=== PATIENT | female | born 1975 | race Caucasian/White ===

== ENCOUNTER → 2016-09-25 | Outpatient (CLI) | payer BC ==
--- NOTE | 2016-09-26 07:59 | MAMMOGRAPHY REPORT ---
BILATERAL DIGITAL SCREENING MAMMOGRAM TOMOSYNTHESIS WITH CAD: 09/25/2016 CLINICAL HISTORY: Baseline examination. Routine screening. Patient has no complaints. TECHNIQUE: Breast tomosynthesis in addition to standard 2D mammography was performed. Current study was also evaluated with a Computer Aided Detection (CAD) system. COMPARISON: No prior exams were available for comparison. BREAST COMPOSITION: The tissue of both breasts is heterogeneously dense, which may obscure small mas ses. FINDINGS: No suspicious masses, calcifications, or areas of architectural distortion are noted in ei ther breast. IMPRESSION: ACR BI-RADS CATEGORY 1: NEGATIVE There is no mammographic evidence of malignancy. A 1 year screening mammogram is recommended. The pa tient will receive written notification of the results. Approximately 10% of breast cancers are not detected with mammography. A negative mammographic report should not delay biopsy if a clinically suggestive mass is present. Lucie Rahman M.D. /:09/25/2016 14:50:46 Boat Crew Deck Hand: Aurelia BRARR, M, [facility] letter sent: Normal 1/2 BI-RADS Code: ACR BI-RADS Category 1: Negative
== END | disposition home or self-care (01) ==
LOC: C.MAMM 12:32
PROVIDERS: ATTEND Family Medicine
DX: Z12.31 Encounter for screening mammogram for malignant neoplasm of breast (principal)

== ENCOUNTER 2020-01-11 05:02 | Observation (INO) ==
--- NOTE | 2019-12-13 13:19 | Anesthesiology Consultation ---
Date of Service December 13, 2019 Assessment & Plan (1) Encounter for pre-operative examination: Per assessment on 12/12: Travel screen negative. No known COVID-19 positive contac ts or current COVID-19 related symptoms. Surgeon arranging preop COVID testing. Awaiting results. Chart Review Chart Review: Acceptable Risk for Surgery (pending surgeon-ordered PCP clearance (Dr. Valera)) and Patient seen in Pre Admission Testing Teaching & Discussion Pre-Anesthesia Teaching/Discussion Notes: Instructed NPO after midnight before surgery,except medications with 15 cc of water. Medication instructions provided according to the PAT guidelines. History Surgery Operation Date: 01/11/20 10:05 Proposed Procedures p Right Total Knee Arthroplasty - Rakan Barraza DO Height/Weight Height: 5 ft Weight: 98.7 kg Allergies Allergy/AdvReac Type Severity Reaction Status Date / Time No Known Allergies Allergy Verified 12/09/19 09:46 Medications Home Medications Medication Instructions Recorded Confirmed Last Taken No Known Home Medications 12/09/19 12/09/19 Unknown Past Medical History Medical History Morbid obesity Osteoarthritis Exercise / Class Metabolic Activity II 4-5 Yardwork/Stairs/Walk up hill Past Surgical History Surgical History History of carpal tunnel surgery of right wrist Hx of arthroscopy of knee R/L Hx of section Hx of hysterectomy Past Anesthesia History No Hx of Anesthesia Complications and No Family Hx of Anesthesia Complications History of PONV No Hx of PONV and Hx of Motion Sickness (rare) Social History Smoking Status: Never smoker Do You Dip or Chew Tobacco: No Hx Alcohol Use: No Hx Substance Use: No substance use type: does not use Review of Systems Patient denies chest pain, shortness of breath, dyspnea on exertion, fever, chills, cough, wheezing, palpitations. Physical Exam Vital Signs VITALS BP 119/78 P 77 TEMP 98.8 SP02 94%RA RESP 18 PHYSICAL Full neck and c-spine range of motion. Full TMJ range of motion. TMD 3 finger breaths Mallampati Score 1 Dentition: intact Lungs: clear throughout to auscultation Cardiac: regular rate and rhythm, no murmurs noted Spine: normal Extremities: no edema Testing Laboratory Results 12/13/19 13:46 12/13/19 13:46 PT 10.4 Seconds (9.0-12.0) 12/13/19 13:46 INR 1.0 (0.9-1.1) 12/13/19 13:46 APTT 28.8 Seconds (21.0-31.0) 12/13/19 13:46 Urine Color Yellow 12/13/19 13:46 Urine Appearance Clear (Clear) 12/13/19 13:46 Urine pH 5.0 (4.5-7.5) 12/13/19 13:46 Ur Specific [place] 1.022 (1.000-1.030) 12/13/19 13:46 Urine Protein Negative (Negative) 12/13/19 13:46 Urine Glucose (UA) Negative (Negative) 12/13/19 13:46 Urine Ketones Negative (Negative) 12/13/19 13:46 Urine Nitrite Negative (Negative) 12/13/19 13:46 Ur Leukocyte Esterase Trace (Negative) H 12/13/19 13:46 Urine WBC (Auto) 5-10 /hpf (0-5) H 12/13/19 13:46 Urine RBC (Auto) 5-10 /hpf (0-4) H 12/13/19 13:46 U Hyaline Cast (Auto) 0 /lpf (0-5) 12/13/19 13:46 U Epithel Cells (Auto) >30 /lpf (0-5) H 12/13/19 13:46 Urine Bacteria (Auto) 1+ (Negative) H 12/13/19 13:46 Blood Type A Positive 12/13/19 13:46 Antibody Screen NEGATIVE 12/13/19 13:46 Surgeon's office made aware of elevated WBC/abnormal UA.* Electrocardiogram Date: 12/13/19 NSR at 67bpm. unconfirmed report* Chest X-Ray Date: 12/13/19 FINDINGS: S-shaped scoliosis of the thoracolumbar spine. The lungs are clear. The heart is normal in size. No pleural effusions. No pneumothorax. IMPRESSION: No acute process.
--- NOTE | 2019-12-13 14:27 | XRay Report ---
XR chest Pre-admission PA/Lat HISTORY: Preop. COMPARISON: None. FINDINGS: S-shaped scoliosis of the thoracolumbar spine. The lungs are clear. The heart is normal in size. No pleural effusions. No pneumothorax. IMPRESSION: No acute process. ACT 112: Negative or not required by law. Electronically signed by: Jose Simmons M.D. 12/13/2019 2:26 PM
[2019-12-13 14:54] LABS: Basophils # (auto) 0.03 K/uL (0-0.2); Basophils % (auto) 0.3 %; Eosinophils # (auto) 0.29 K/uL (0-0.5); Eosinophils % (auto) 2.6 %; Hematocrit (blood only) 40.5 % (37-47); Hemoglobin 13.5 g/dL (12.0-16.0); Immature Granulocytes # (auto) 0.05 K/uL (0.00-0.02); Immature Granulocytes % (auto) 0.4 %; Lymphocytes # (auto) 3.83 K/uL (1.2-3.4); Lymphocytes % (auto) 33.7 %; Mean Corpuscular Hgb Conc 33.3 g/dL (32-36); Mean Corpuscular Volume 86.9 fL (80-100); Mean Platelet Volume 11.6 fL (7.4-10.4); Monocytes # (auto) 0.96 K/uL (0.11-0.59); Monocytes % (auto) 8.4 %; Neutrophils # (auto) 6.21 K/uL (1.4-6.5); Neutrophils % (auto) 54.6 %; Platelet Count 260 K/uL (130-400); RDW Coefficient of Variation 15.5 % (11.5-14.5); RDW Standard Deviation 49.3 fL (36.4-46.3); Red Blood Count 4.66 M/uL (4.2-5.4); White Blood Count 11.37 K/uL (4.8-10.8)
[2019-12-13 14:55] LABS: Appearance Urine Clear (Clear); Bacteria Urine Automated 1+ (Negative); Bilirubin Urine Negative (Negative); Blood Urine Negative (Negative); Cast Urine Automated 0 /lpf (0-5); Color Urine Yellow; Epithelial Cell Urine Auto >30 /lpf (0-5); Glucose Urine UA Negative (Negative); Ketones Urine Negative (Negative); Leukocyte Esterase Urine Trace (Negative); Nitrite Urine Negative (Negative); Protein Urine Negative (Negative); Specific Gravity Urine 1.022 (1.000-1.030); Urobilinogen Urine Negative (Negative)
[2019-12-13 15:03] LABS: Albumin Level 3.5 gm/dl (3.4-5.0); BUN Creatinine Ratio 11.3 (10-20); Calcium 8.5 mg/dl (8.5-10.1); Creatinine Clr Calc Pharmacy 110.1 ml/min; Est GFR (African American) 122.4; Est GFR (Non-African American) 105.6; Potassium 3.9 mmol/L (3.5-5.1)
[2019-12-13 15:08] LABS: Partial Thromboplastin Time 28.8 Seconds (21.0-31.0); Prothrombin Time 10.4 Seconds (9.0-12.0)
--- NOTE | 2019-12-13 18:20 | Electrocardiogram Report ---
Test Reason : Blood Pressure : / mmHG Vent. Rate : 067 BPM Atrial Rate : 067 BPM P-R Int : 168 ms QRS Dur : 086 ms QT Int : 402 ms P-R-T Axes : 061 073 038 degrees QTc Int : 424 ms Normal sinus rhythm Normal ECG No previous ECGs available Confirmed by Matt Ford ([id number]) on 12/13/2019 6:20:21 PM Referred By: Rakan Barraza Confirmed By:Nigel Ford
[2019-12-14 05:35] LABS: Estimated Average Glucose 108 mg/dl; Hemoglobin A1C 5.4 % (4.5-5.6)
--- NOTE | 2019-12-16 08:37 | History & Physical Report ---
Date of Service December 16, 2019 date of surgery: 01/11/20 procedure: Right Total Knee Arthroplasty Assessment & Plan (1) Arthritis of right knee: Further care discussed with patient and at this point in time has failed conservative measures including visco and previous knee arthroscopy as well as PO NSAIDs, and she would like to proceed with a Right total knee replacement. Plan on discharge will be home with home health physical therapy. DVT prophalaxis with TEDs, SCDs and will also place on aspirin 81 mg p.o. b.i.d. for a month postop. Patient will have follow up appointment in our office two weeks post op for staple/suture removal and re-evaluation. Patient otherwise has no o ther questions or concerns. History of Present Illness Chief Complaint: Right knee pain Primary Care Provider: Ian Hoffmann is a 44 year old female who complains of Right knee pain, presents for pre-op evaluation prior to a Right total knee replacement by dr Barraza at [facility]. She complains of pain, decreased range of motion, instability and stiffness in her right knee. she states that the symptoms have been chronic and are rated as moderate-severe. The pain is described as aching, sharp and throbbing. The symptoms are aggravated by ascending stairs, daily activities, first steps while awake walking. Prior NSAIDs include IBU and Aleve. She has been treated with previous visco injections in the past, most recently Durolane a few months ago without much relief. She previously had right knee scope on 04/18/[address] Barraza, he performed right knee arthroscopy w/ PMM and chondroplasty of the trochlea. Allergies Allergy/AdvReac Type Severity Reaction Status Date / Time No Known Allergies Allergy Verified 12/09/19 09:46 Home Medications Home Medications Medication Instructions Recorded Confirmed Type No Known Home Medications 12/09/19 12/09/19 History Past Med/Surg History Medical History Morbid obesity Osteoarthritis Surgical History History of carpal tunnel surgery of right wrist Hx of arthroscopy of knee R/L Hx of section Hx of hysterectomy Social History Smoking Status: Never smoker Second Hand Exposure: No; Do You Dip or Chew Tobacco: No; Tobacco Cessation Education Requested by Patient: No Hx Alcohol Use: No Hx Substance Use: No Preferred Language: French Communication Ability: Effective Drywall Application Supervisor Required: No Beliefs That Will Affect Care: None Current Living Situation: Family Other Information That Helps Us Care for You: No Feels Safe at Home: Yes Safety Concerns: Feels Safe At This Time Review of Systems Review of Systems: All systems reviewed & are unremarkable except as noted in HPI & below Constitutional: no fever, no chills and no sweats Respiratory: no cough and no dyspnea Cardiovascular: no chest pain, no dyspnea and no orthopnea Gastrointestinal: no abdominal pain, no nausea and no vomiting Musculoskeletal: as per Subjective / HPI Physical Exam Physical Exam: HT: 5ft Wt: 98.7kg BP: 112/78 Constitutional: WD/WN, vitals as above no acute distress Respiratory: normal respiratory effort, lungs clear to auscultation no respiratory distress, no labored breathing and does not use accessory muscles Cardiovascular: RRR, no murmur, no edema Gastrointestinal (Abdomen): normal bowel sounds, soft, nontender, no hepatosplenomegaly Musculoskeletal: Knee: + knee abnormal to inspection (right knee- ), + effusion (+1 effusion), + surgical incision (well healed portals), + limited ROM of knee (ROM 0/3/115), + knee ROM with crepitation, + joint line tenderness (medial joint line) and + Shanel's sign positive; no deformity, no skin erythema, no ecchymosis, no valgus laxity, no varus laxity, anterior drawer test negative, Brian's sign negative and pivot shift test negative Results & Data Results & Data ([facility]) Laboratory Results Laboratory Results WBC 11.37 K/uL (4.8-10.8) H 12/13/19 13:46 RBC 4.66 M/uL (4.2-5.4) 12/13/19 13:46 Hgb 13.5 g/dL (12.0-16.0) 12/13/19 13:46 Hct 40.5 % (37-47) 12/13/19 13:46 MCV 86.9 fL (80-100) 12/13/19 13:46 MCH 29.0 pg (25-34) 12/13/19 13:46 MCHC 33.3 g/dL (32-36) 12/13/19 13:46 RDW Std Deviation 49.3 fL (36.4-46.3) H 12/13/19 13:46 RDW Coeff of Roxann 15.5 % (11.5-14.5) H 12/13/19 13:46 Plt Count 260 K/uL (130-400) 12/13/19 13:46 MPV 11.6 fL (7.4-10.4) H 12/13/19 13:46 Immature Gran % (Auto) 0.4 % 12/13/19 13:46 Neut % (Auto) 54.6 % 12/13/19 13:46 Lymph % (Auto) 33.7 % 12/13/19 13:46 [place] % (Auto) 8.4 % 12/13/19 13:46 Eos % (Auto) 2.6 % 12/13/19 13:46 Baso % (Auto) 0.3 % 12/13/19 13:46 Neut # (Auto) 6.21 K/uL (1.4-6.5) 12/13/19 13:46 Lymph # (Auto) 3.83 K/uL (1.2-3.4) H 12/13/19 13:46 [place] # (Auto) 0.96 K/uL (0.11-0.59) H 12/13/19 13:46 Eos # (Auto) 0.29 K/uL (0-0.5) 12/13/19 13:46 Baso # (Auto) 0.03 K/uL (0-0.2) 12/13/19 13:46 Immature Gran # (Auto) 0.05 K/uL (0.00-0.02) H 12/13/19 13:46 PT 10.4 Seconds (9.0-12.0) 12/13/19 13:46 INR 1.0 (0.9-1.1) 12/13/19 13:46 APTT 28.8 Seconds (21.0-31.0) 12/13/19 13:46 PTT Ratio 1.0 12/13/19 13:46 Sodium 139 mmol/L (136-145) 12/13/19 13:46 Potassium 3.9 mmol/L (3.5-5.1) 12/13/19 13:46 Chloride 107 mmol/L (98-107) 12/13/19 13:46 Carbon Dioxide 23 mmol/L (21-32) 12/13/19 13:46 Anion Gap 9.0 (3-11) 12/13/19 13:46 BUN 8 mg/dl (7-18) 12/13/19 13:46 Creatinine 0.68 mg/dl (0.6-1.2) 12/13/19 13:46 Est Cr Clr Drug Dosing 110.1 ml/min 12/13/19 13:46 Est GFR ( Amer) 122.4 12/13/19 13:46 Est GFR (Non-Af Amer) 105.6 12/13/19 13:46 BUN/Creatinine Ratio 11.3 (10-20) 12/13/19 13:46 Glucose 81 mg/dl (70-99) 12/13/19 13:46 Estimat Average Glucose 108 mg/dl 12/13/19 13:46 Hemoglobin A1c 5.4 % (4.5-5.6) 12/13/19 13:46 Calcium 8.5 mg/dl (8.5-10.1) 12/13/19 13:46 Albumin 3.5 gm/dl (3.4-5.0) 12/13/19 13:46 Urine Color Yellow 12/13/19 13:46 Urine Appearance Clear (Clear) 12/13/19 13:46 Urine pH 5.0 (4.5-7.5) 12/13/19 13:46 Ur Specific [place] 1.022 (1.000-1.030) 12/13/19 13:46 Urine Protein Negative (Negative) 12/13/19 13:46 Urine Glucose (UA) Negative (Negative) 12/13/19 13:46 Urine Ketones Negative (Negative) 12/13/19 13:46 Urine Blood Negative (Negative) 12/13/19 13:46 Urine Nitrite Negative (Negative) 12/13/19 13:46 Urine Bilirubin Negative (Negative) 12/13/19 13:46 Urine Urobilinogen Negative (Negative) 12/13/19 13:46 Ur Leukocyte Esterase Trace (Negative) H 12/13/19 13:46 Urine WBC (Auto) 5-10 /hpf (0-5) H 12/13/19 13:46 Urine RBC (Auto) 5-10 /hpf (0-4) H 12/13/19 13:46 U Hyaline Cast (Auto) 0 /lpf (0-5) 12/13/19 13:46 U Epithel Cells (Auto) >30 /lpf (0-5) H 12/13/19 13:46 Urine Bacteria (Auto) 1+ (Negative) H 12/13/19 13:46 Blood Type A Positive 12/13/19 13:46 Antibody Screen NEGATIVE 12/13/19 13:46 Diagnostic Findings right knee 4 view series showing narrowing of joint space medial compartment with overall varus alignment, there is also narrowing of the lateral compartment and patellofemoral joint. there is osteophyte formation, subchondral sclerosis noted, no loose bodies, no acute bony pathology. overall impression tricompartmental degenerative changes to the right knee.
--- OUTSIDE RECORDS SUMMARY | 2020-01-11 05:05 | External Medical Summary | Continuity of Care Document ---
:1975 Author Name Inez Frazier, Provider Address Unavailable Unavailable , Care Team Providers Name Role Phone Jaylen NEGRON M.D., E. PLele Unavailable [email or web address], [email or web address] Unavailable Unavailable Assessments Assessed Problems:Limb pain Problems Limb pain (319.5) (M41.609) Allergies and Adverse Reactions Allergy history not documented Medications Medications not documented Procedures Procedures not documented Immunizations Immunizations not documented Plan of Treatment Planned Observations Planned Goals not documented Results No Known Results Results not documented Encounters Appointment; Jones York III, M.D. 23-Feb-2014 15:30 Encounter Diagnosis: Problem not documented
[2020-01-11] MEDS ORDERED: ACETAMINOPHEN 500 MG TAB PO SCH (06:00)
[2020-01-11] MEDS ORDERED: LR 500ML BOLUS, THEN 15ML/HR IV SCH (06:00)
[2020-01-11] MEDS ORDERED: GABAPENTIN 900 MG DOSE PO SCH (06:00)
[2020-01-11] MEDS ORDERED: dexAMETHasone 4 MG TAB PO SCH (06:00)
[2020-01-11] MEDS ORDERED: GABAPENTIN 600 MG DOSE PO SCH (06:00)
[2020-01-11] MEDS ORDERED: CeleBREX 200 MG CAP PO SCH (06:00)
[2020-01-11] MEDS ORDERED: METOCLOPRAMIDE HCL 10 MG TABLET PO SCH (06:00)
[2020-01-11] MEDS ORDERED: CEFAZOLIN 2000MG 2,000 MG/15 ML SYR IV SCH (06:00)
[2020-01-11] MEDS ORDERED: FAMOTIDINE 20 MG TAB PO SCH (06:00)
[2020-01-11] MEDS ORDERED: BUPIVACAINE 0.5 % 5 MG/1 ML PF 10ML VIAL ONE (06:15)
[2020-01-11] MEDS ORDERED: BUPIVACAINE 0.25% 30 ML VIAL ONE (06:15)
[2020-01-11] MEDS ORDERED: fentaNYL citrate 100 MCG/2 ML VIAL ONE (06:26)
[2020-01-11] MEDS ORDERED: MIDAZOLAM HCL 1 MG/ML 2ML VIAL ONE ×2 (06:26)
[2020-01-11] MEDS ORDERED: TRANEXAMIC ACID / 0.7% NACL 1000MG/100ML BAG IV ONE (06:39)
[2020-01-11] MEDS ORDERED: TRANEXAMIC ACID / 0.7% NACL 1,000 MG/100 ML BAG IV STA ×2 (06:40→06:41)
[2020-01-11] MEDS ORDERED: BACITRACIN INJ 50,000 UNIT VIAL ONE (06:44)
[2020-01-11] MEDS ORDERED: ORTHO JOINT ANESTHETIC ONE (06:44)
--- NOTE | 2020-01-11 06:57 | History & Physical Bridge Note ---
Date of Service January 11, 2020 History & Physical Bridge Note I have examined the patient, reviewed the History & Physical and in the interval since the performance of the History & Physical I have noted the following changes of clinical significance: no changes noted
[2020-01-11] MEDS ORDERED: ROPIVACAINE 0.5% HCL/PF 150 MG, BUPIVACAINE 0.5% MPF 30 ML, EPINEPHrine 30MG/30ML (OR U... INFIL SCH (07:00)
[2020-01-11] MEDS ORDERED: PROPOFOL IV EMULSION 10 MG/ML 20 ML VIAL IV ONE (07:22)
[2020-01-11] MEDS ORDERED: ATROPINE SULFATE 0.1 MG/ML 10ML SYR IV PRN (07:39)
[2020-01-11] MEDS ORDERED: ePHEDrine sulfate 50 MG/ML AMP IV PRN (07:39)
[2020-01-11] MEDS ORDERED: fentaNYL citrate 100 MCG/2 ML VIAL IV PRN (07:39)
[2020-01-11] MEDS ORDERED: ONDANSETRON INJ 2 MG/ML 2 ML VIAL IV PRN ×2 (07:39→09:45)
--- NOTE | 2020-01-11 08:19 | Operative Report ---
Post Operative Report Pre & Post Diagnosis Operation Date: 01/11/20 07:00 Pre-Op Diagnosis: Osteoarthritis, Right Knee Post-Op Diagnosis: Osteoarthritis, Right Knee I identified the patient and participated in the time-out.: Yes Procedure Operation Date: 01/11/20 07:00 Actual Procedures p Right Total Knee Arthroplasty(Right) utilizing [email or web address] journey 2 patient matched total knee arthroplasty size 4 femur to tibia 13 polyethylene 29 oval patella- Rakan Barraza DO Surgeon Rakan Barraza DO Freight Team Associate RICHY Caraballo Estimated Blood Loss 5 Findings Consistent with Post-Op Diagnosis Patient presents with severe end-stage tricompartmental degenerative joint disease varus alignment subchondral cystic changes marginal osteophytes moderate to large effusion no response to conservative management the above intraoperative findings were noted Specimens Bone and cartilage Drains Medium bore Hemovac Anesthesia Type MAC Spinal Regional Complications none Disposition Accompanied Patient To Recovery: No Disposition: Recovery Room Indications Patient presents with severe end-stage tricompartmental degenerative joint disease right knee no response to conservative management above intraoperative findings were noted. Patient failed attempted corticosteroid injection Visco supplementation relative rest activity modification bracing physical therapy weight loss the above intraoperative findings were noted Description of Procedure After proper prepping and draping of the Right lower extremity anterior midline incision was made over the region of the extensor extensor mechanism after meticulous hemostasis was obtained and maintained in subcutaneous tissues a medial parapatellar incision was made The patella was subluxed lateralward the medial lateral gutter were cleaned from any hypertrophic synovitis and scar tissue of the distal femoral block was placed and the distal femoral osteotomy cut was made subsequently the chamfers anterior and posterior osteotomy cuts were made utilizing the 4-in-1 block the tibia was subsequently subluxed anteriorward medial and ateral meniscal remnants were excised in their entirety remnants of the anterior and posterior cruciate ligaments were excised in their entirety excellent exposure of the proximal tibia was obtained the tibial osteotomy guide was placed on the proximal tibial osteotomy cut was made once again the knee was irrigated with copious amounts of sterile saline solution the patella was subsequently everted lateralward thickened scar tissue around the patella was removed the patella was subsequently cut utilizing a freehand technique and was drilled prepared for final preparation and placement of patella socially flexion-extension gaps were checked and the equal and symmetric trials were placed to the appropriate femoral and tibial trials with poly-spacer being placed for equal flexion and extension gaps and full range of motion including extension to 0 and flexion to 140 the trial components after having been taken to recovery range of motion was subsequently removed meticulous hemostasis was obtained and maintained subsequently a knee block injection of joint cocktail including ropivacaine 0.5% 150 mg. Bupivacaine 0.5% epinephrine 1-200,030 mL's toradol 30 mg dexamethasone 4 mg ketamine 10 mg clonidine 100 micrograms normal saline solution 30 mg was infiltrated into the soft tissues of the posterior knee medial lateral gutters and periosteal synovium special attention was paid to protect neurovascular structures at all times subsequently trial components having been removed the knee was irrigated with sterile saline solution. debris was removed the proximal tibia was subsequently prepared and was made ready for the placement of the tibial component tibial component was also cemented and tamped into position the femoral component was subsequently placed and cemented in the position the patellar component was subsequently cemented in position because hemostasis once again obtained and maintained wound having been thoroughly irrigated with debridement and debridement lavage was performed as well as a medial parapatellar incision closed with #1 Vicryl in interrupted fashion subcutaneous was closed with #2 Vicryl skin was closed with skin clips. PA-C was necessary for prepping and drapping as well as wound closure of deep fascia Sub cutaneous tissue and skin and was necessary for the case. A sterile compressive dressing was placed patient was taken to recovery in stable condition of report dictated by Madi I attest to the content of the Intraoperative Record and any orders documented therein. Any exceptions are noted below. I attest to the content of the Intraoperative Record and any orders documented therein. Any exceptions are noted below.
--- NOTE | 2020-01-11 09:17 | Anesthesiology Progress Note ---
Date of Service January 11, 2020 Anesthesia Post Procedure Vital Signs Vital Signs: Temp Pulse Pulse Resp BP Pulse Ox 01/11/20 09:00 80 15 106/61 98 01/11/20 08:54 36.6 C 87 12 109/56 L 99 01/11/20 06:05 36.7 C 85 20 126/77 100 01/11/20 05:47 36.8 C 82 20 115/68 98 Transfer of Care Handoff Completed per policy Notes Mental Status: alert / awake / arousable and participated in evaluation Nausea / Vomiting: adequately controlled Pain: adequately controlled Airway Patency, RR, SpO2: stable & adequate BP & HR: stable & adequate Hydration State: stable & adequate Neuraxial Anesthesia: was administered and sensory block is resolving Anesthetic Complications: no major complications apparent and Pt Satisfied with anesthetic care
--- NOTE | 2020-01-11 09:35 | XRay Report ---
XR knee RT 1 or 2V routine CLINICAL HISTORY: Surgical Post Op COMPARISON: None FINDINGS: Alignment of the total right knee arthroplasty is anatomic. There is no periprosthetic fra cture or unexpected radiopaque foreign body. There are skin guillermo. IMPRESSION: Expected findings following total right knee arthroplasty. ACT 112: Negative or not required by law. Electronically signed by: Jose Stanley M.D. 01/11/2020 9:33 AM
[2020-01-11] MEDS ORDERED: HYDROmorphone INJ 1 MG/ML SYRINGE IV PRN (09:45)
[2020-01-11] MEDS ORDERED: METOCLOPRAMIDE HCL INJ 5 MG/ML 2 ML VIAL IV PRN (09:45)
[2020-01-11] MEDS ORDERED: bisacodyL 10 MG SUPP PR PRN (09:45)
[2020-01-11] MEDS ORDERED: MAGNESIUM HYDROXIDE SUSP 30 ML UDC PO PRN (09:45)
[2020-01-11] MEDS ORDERED: NALOXONE HCL 0.4 MG/1 ML VIAL/CARP IV PRN (09:45)
[2020-01-11] MEDS ORDERED: OXYCODONE HCL IR 5 MG TAB (IMMEDIATE RELEASE) PO PRN (09:45)
[2020-01-11] MEDS: SODIUM CHLORIDE 0.9% 1000ML 1,000 ML IV SCH ×2 (10:41→21:10)
[2020-01-11] MEDS: KETOROLAC 30 MG/ML VIAL IV SCH ×3 (10:43→22:04)
[2020-01-11] MEDS: DOCUSATE SODIUM 100 MG CAP PO SCH ×2 (10:43→21:00)
[2020-01-11] MEDS: MULTIVITAMIN TAB PO SCH (10:43)
[2020-01-11] MEDS: ASPIRIN 81 MG ECTAB PO SCH ×2 (10:43→20:59)
[2020-01-11] MEDS: ACETAMINOPHEN 500 MG TAB PO SCH ×2 (14:39→20:59)
[2020-01-11] MEDS: CEFAZOLIN 2000MG 2,000 MG/15 ML SYR IV SCH ×2 (15:00→22:03)
[2020-01-11] MEDS ORDERED: SENNA 8.6 MG TAB PO SCH (21:00)
[2020-01-12] MEDS: KETOROLAC 30 MG/ML VIAL IV SCH (05:36)
[2020-01-12] MEDS: ACETAMINOPHEN 500 MG TAB PO SCH ×2 (05:36→12:58)
[2020-01-12 06:37] LABS: Hematocrit (blood only) 34.1 % (37-47); Hemoglobin 11.4 g/dL (12.0-16.0); Mean Corpuscular Hemoglobin 29.2 pg (25-34); Mean Corpuscular Hgb Conc 33.4 g/dL (32-36); Mean Corpuscular Volume 87.4 fL (80-100); Mean Platelet Volume 11.8 fL (7.4-10.4); Platelet Count 236 K/uL (130-400); RDW Coefficient of Variation 15.2 % (11.5-14.5); RDW Standard Deviation 48.8 fL (36.4-46.3)
--- NOTE | 2020-01-12 06:55 | Orthopedic Progress Note ---
Date of Service January 12, 2020 Assessment & Plan (1) History of total right knee replacement: POD #1 s/p Right TKA pt/ot dvt proph with ELHAM/SCD/ASA plan for d/c home with HHPT when stable, will recheck after PT today for poss d/c Admission and Anticipated Discharge Date Admission Date: January 11, 2020 Subjective POD #1 s/p Right TKA Review of Systems Constitutional: no fever, no chills and no sweats Respiratory: no cough and no dyspnea Cardiovascular: no chest pain and no dyspnea Gastrointestinal: no abdominal pain, no nausea and no vomiting Physical Exam Physical Exam: Vital Signs Temp 37.0 C 01/12/20 04:03 Pulse 79 01/12/20 04:03 Resp 14 01/12/20 04:03 BP 112/69 01/12/20 04:03 Pulse Ox 97 01/12/20 04:03 Intake & Output 01/11/20 01/11/20 01/12/20 06:59 18:59 06:59 Intake Total 100 / 100 1875 / 3515 1640 / 3515 Output Total 1305 / 1505 200 / 1505 Balance 100 / 100 / 2009 144 / 2009 Weight 98.792 kg Intake: IV 100 / 100 800 / 1800 1000 / 1800 Lr 1,000 ml @ 15 mls/hr IV . 700 / 700 Q24H KODAK Rx#:[id number] Nss 1000ML 1,0 00 ml @ 100 mls/ 1000 / 1000 hr IV .Q10H SC H Rx#:[id number] TRANEXAMIC ACI D / 0.7% NACL 1, 100 / 100 100 / 100 000 mg In 100 ml @ 600 mls/hr IV NOW STA Rx# :[id number] IV Perioperative 400 / 400 Oral 675 / 1315 640 / 1315 Output: Urine 1250 / 1450 200 / 1450 Estimated Blood Loss 5 / 5 Drain Output 50 / 50 Right Knee Hem ovac 50 / 50 Other: # Unmeasured Voi ds 1 Weight Measureme nt Method Standing Scale Constitutional: WD/WN, vitals as above no acute distress Musculoskeletal: Right Leg: NVDI, calf SNT, negative mario sign. DP palpable, able to wiggle toes/ankle movement without difficulty. dressing clean dry and intact. Results & Data ([facility]) Vital Signs (Past 12 Hours) Vital Signs Temp Pulse Resp BP Pulse Ox 01/12/20 04:03 37.0 C 79 14 112/69 97 01/11/20 23:41 37.2 C 74 14 137/81 96 01/11/20 19:15 37.2 C 74 16 111/74 96 Laboratory Results Laboratory Results WBC 21.60 K/uL (4.8-10.8) H 01/12/20 06:05 RBC 3.90 M/uL (4.2-5.4) L 01/12/20 06:05 Hgb 11.4 g/dL (12.0-16.0) L 01/12/20 06:05 Hct 34.1 % (37-47) L 01/12/20 06:05 MCV 87.4 fL (80-100) 01/12/20 06:05 MCH 29.2 pg (25-34) 01/12/20 06:05 MCHC 33.4 g/dL (32-36) 01/12/20 06:05 RDW Std Deviation 48.8 fL (36.4-46.3) H 01/12/20 06:05 RDW Coeff of Roxann 15.2 % (11.5-14.5) H 01/12/20 06:05 Plt Count 236 K/uL (130-400) 01/12/20 06:05 MPV 11.8 fL (7.4-10.4) H 01/12/20 06:05 Immature Gran % (Auto) 0.4 % 12/13/19 13:46 Neut % (Auto) 54.6 % 12/13/19 13:46 Lymph % (Auto) 33.7 % 12/13/19 13:46 Tyrrell % (Auto) 8.4 % 12/13/19 13:46 Eos % (Auto) 2.6 % 12/13/19 13:46 Baso % (Auto) 0.3 % 12/13/19 13:46 Neut # (Auto) 6.21 K/uL (1.4-6.5) 12/13/19 13:46 Lymph # (Auto) 3.83 K/uL (1.2-3.4) H 12/13/19 13:46 Tyrrell # (Auto) 0.96 K/uL (0.11-0.59) H 12/13/19 13:46 Eos # (Auto) 0.29 K/uL (0-0.5) 12/13/19 13:46 Baso # (Auto) 0.03 K/uL (0-0.2) 12/13/19 13:46 Immature Gran # (Auto) 0.05 K/uL (0.00-0.02) H 12/13/19 13:46 PT 10.4 Seconds (9.0-12.0) 12/13/19 13:46 INR 1.0 (0.9-1.1) 12/13/19 13:46 APTT 28.8 Seconds (21.0-31.0) 12/13/19 13:46 PTT Ratio 1.0 12/13/19 13:46 Sodium 139 mmol/L (136-145) 12/13/19 13:46 Potassium 3.9 mmol/L (3.5-5.1) 12/13/19 13:46 Chloride 107 mmol/L (98-107) 12/13/19 13:46 Carbon Dioxide 23 mmol/L (21-32) 12/13/19 13:46 Anion Gap 9.0 (3-11) 12/13/19 13:46 BUN 8 mg/dl (7-18) 12/13/19 13:46 Creatinine 0.68 mg/dl (0.6-1.2) 12/13/19 13:46 Est Cr Clr Drug Dosing 110.1 ml/min 12/13/19 13:46 Est GFR ( Amer) 122.4 12/13/19 13:46 Est GFR (Non-Af Amer) 105.6 12/13/19 13:46 BUN/Creatinine Ratio 11.3 (10-20) 12/13/19 13:46 Glucose 81 mg/dl (70-99) 12/13/19 13:46 Estimat Average Glucose 108 mg/dl 12/13/19 13:46 Hemoglobin A1c 5.4 % (4.5-5.6) 12/13/19 13:46 Calcium 8.5 mg/dl (8.5-10.1) 12/13/19 13:46 Albumin 3.5 gm/dl (3.4-5.0) 12/13/19 13:46 Urine Color Yellow 12/13/19 13:46 Urine Appearance Clear (Clear) 12/13/19 13:46 Urine pH 5.0 (4.5-7.5) 12/13/19 13:46 Ur Specific [place] 1.022 (1.000-1.030) 12/13/19 13:46 Urine Protein Negative (Negative) 12/13/19 13:46 Urine Glucose (UA) Negative (Negative) 12/13/19 13:46 Urine Ketones Negative (Negative) 12/13/19 13:46 Urine Blood Negative (Negative) 12/13/19 13:46 Urine Nitrite Negative (Negative) 12/13/19 13:46 Urine Bilirubin Negative (Negative) 12/13/19 13:46 Urine Urobilinogen Negative (Negative) 12/13/19 13:46 Ur Leukocyte Esterase Trace (Negative) H 12/13/19 13:46 Urine WBC (Auto) 5-10 /hpf (0-5) H 12/13/19 13:46 Urine RBC (Auto) 5-10 /hpf (0-4) H 12/13/19 13:46 U Hyaline Cast (Auto) 0 /lpf (0-5) 12/13/19 13:46 U Epithel Cells (Auto) >30 /lpf (0-5) H 12/13/19 13:46 Urine Bacteria (Auto) 1+ (Negative) H 12/13/19 13:46 Blood Type A Positive 12/13/19 13:46 Antibody Screen NEGATIVE 12/13/19 13:46 Diagnostic Findings XR knee RT 1 or 2V routine CLINICAL HISTORY: Surgical Post Op COMPARISON: None FINDINGS: Alignment of the total right knee arthroplasty is anatomic. There is no periprosthetic fracture or unexpected radiopaque foreign body. There are skin guillermo. IMPRESSION: Expected findings following total right knee arthroplasty.
[2020-01-12 07:09] LABS: BUN Creatinine Ratio 17.1 (10-20); Calcium 8.2 mg/dl (8.5-10.1); Creatinine Clr Calc Pharmacy 99.9 ml/min; Est GFR (African American) 111.6; Est GFR (Non-African American) 96.3; Potassium 3.9 mmol/L (3.5-5.1)
[2020-01-12] MEDS: MULTIVITAMIN TAB PO SCH (08:35)
[2020-01-12] MEDS: DOCUSATE SODIUM 100 MG CAP PO SCH (08:35)
[2020-01-12] MEDS: ASPIRIN 81 MG ECTAB PO SCH (08:36)
[2020-01-12] MEDS ORDERED: CeleBREX 200 MG CAP PO SCH (09:00)
--- NOTE | 2020-01-13 09:14 | Discharge Summary ---
Date of Service date of surgery: January 12, 2020 date of admission: 01-11-20 Admission HPI Per Admitting Provider Tahira is a 44 year old female who complains of Right knee pain, presents for pre-op evaluation prior to a Right total knee replacement by dr Barraza at [facility]. She complains of pain, decreased range of motion, instability and stiffness in her right knee. she states that the symptoms have been chronic and are rated as moderate-severe. The pain is described as aching, sharp and throbbing. The symptoms are aggravated by ascending stairs, daily activities, first steps while awake walking. Prior NSAIDs include IBU and Aleve. She has been treated with previous visco injections in the past, most recently Durolane a few months ago without much relief. She previously had right knee scope on 04/18/[address] Barraza, he performed right knee arthroscopy w/ PMM and chondroplasty of the trochlea. Principal Diagnosis right knee arthritis Discharge Exam Constitutional WD/WN, vitals as above no acute distress Musculoskeletal right knee: NVDI, calf SNT, negative mario sign. DP palpable, able to wiggle toes/ankle movement without difficulty. MENA dressing clean dry and intact. expected post-operative bruising noted. Discharge Data Allergies Allergy/AdvReac Type Severity Reaction Status Date / Time No Known Allergies Allergy Verified 01/11/20 05:32 Consultations 01/11/20 09:45 Consult Case Management - Discharge Planning Routine Procedures Performed Operation Date: 01/11/20 07:00 Actual Procedures p Right Total Knee Arthroplasty(Right) - Rakan Barraza, Ordered Studies 01/11/20 05:00 US - OR guided needle placemen Routine Hospital Course (1) History of total right knee replacement: POD #1 s/p Right TKA pt/ot dvt proph with ELHAM/SCD/ASA plan for d/c home with HHPT Total Time Total Time Spent Total Time Spent (In Minutes): 20 Total Time Includes: Examination of the Patient, Discharge Planning and Medication Reconciliation Discharge Plan Discharge Items Patient Disposition: Home - Home Health Services Reason For Visit: Osteoarthritis, Right Knee Discharge Diagnosis: Right total knee replacement Activity: Per Instructions section Lifting: Wait until after follow-up appointment Exercise/Sports: Wait until after follow-up appointment Weightbearing Comment: WBAT with walker Non-emergency contact: Surgeon Call non-emergency contact if: you have any medication questions, your pain is not controlled, your temperature is above 101, your wound has increased redness, your wound has increased drainage and your wound pain has increased Follow-up/Referrals: Ian Valera [Primary Care Provider] - Diet: Regular Addtl Attending Provider Instructions: ACTIVITY RECOMMENDATIONS: SELF CARE INSTRUCTIONS AFTER TOTAL KNEE REPLACEMENT A. You may need to continue a physical therapy program after discharge from the hospital. There are several options available to you. Your doctor will assist you in selecting the best one for you. 1. An out-patient facility 2 to 3 times a week for therapy or home therapy. 2. Continue working on all exercises taught to you in the hospital. Your goals should be to increase bending of your knee to 90 degrees and beyond and to fully straighten your knee. B. You may progress at your own pace from walking with a walker or crutches to a cane; then to no assistive devices. C. Make walking a part of your daily routine. Be up as much as comfortable with rest periods throughout the day. Rest with leg elevation is very important. Use the ice wrap frequently for the first 3-4 weeks. D. There are no restrictions on activities. You may ride in a car, shop, participate in livestock breeder and all social activities. E. Wear the long elastic stockings (ELHAM hose) 20 hours a day for 2 weeks after surgery. They can be removed several times a day for laundering and for a bath. F. You may shower, no tub baths until cleared by your doctor. SPECIAL CARE INSTRUCTIONS: VERY IMPORTANT TO READ AND REVIEW A. There are a few signs you need to watch for after you are home. Call [facility] if you notice any of the followin. Increased severe knee pain. Some pain is expected especially when you exercise. 2. Increased swelling in your leg or knee; pain or swelling of the calf m uscle in either lower leg. 3. Any fluid drainage from the incision. 4. Shortness of breath or chest pain. B. Please call [facility] at if you have any concerns or questions about your operation or recovery. The doctor or his nurse will return your call promptly. C. You must take antibiotics before dental work, bladder, bowel or other surgery. Your doctor will provide you with a permanent care to carry describing this precaution. IMPORTANT: * REMEMBER TO TAKE ASPIRIN, 81 MG, TWICE DAILY FOR 4 WEEKS UNLESS OTHERWISE DIRECTED. THIS IS YOUR BLOOD THINNER. * HIGH RISK PATIENTS MAY BE PRESCRIBED A STRONGER BLOOD THINNER. THIS WILL BE PROVIDED AT DISCHARGE. * CALL IF INCREASED PAIN, REDNESS, DRAINAGE OR FEVER GREATER THAT 101. * WEAR ELHAM HOSE 20 HOURS PER DAY FOR 2 WEEKS. * MENA Dressing- This is a large suction dressing covering your incision. This will help pull any excess drainage from the wound and allow your incision to heal properly. You may shower with this if you can keep the unit outside of the shower. If any bleeding or leakage is noted please call your doctor's office. This will remain on your incision for 7 days and then should be removed. This can be done yourself or by the home nursing staff if applicable. The entire unit is disposable once removed. Once removed, keep incision clean and dry. If redness or drainage is noted, please call your surgeon. IF INCISION IS LEAKING THROUGH DRESSING, CALL THE OFFICE . FOLLOW UP VISIT: If appointment is not already scheduled: Please call [facility] to make a follow-up appointment for 2 weeks after your surgery at . Pending Studies at Discharge: No Stand-Alone Forms: My [facility], Opioid Pain Management, Work/School Release (Inpt), Smoking Cessation Medications and DC Order Prescriptions: New aspirin 81 mg Tablet,Delayed Release (Dr/Ec) 81 mg PO BID 30 Days Qty: 60 RF: 0 acetaminophen 500 mg Tablet 1,000 mg PO Q8 14 Days Qty: 84 RF: 0 celecoxib [Celebrex] 200 mg Capsule 200 mg PO BID 30 Days Qty: 60 RF: 0 oxycodone 5 mg Tablet 5 - 10 mg PO Q6H PRN (Reason: pain) Qty: 30 RF: 0 docusate sodium 100 mg Capsule 100 mg PO BID 10 Days Qty: 20 RF: 0 cefadroxil 500 mg capsule 500 mg PO BID 10 Days Qty: 20 RF: 0 No Action No Known Home Medications RF: 0 Discharge Orders: Discharge Order (Routine); Ordered 01/12/20 Ordered By: Kvng Rainey/Other Patient Handouts: DVT Post Op Prevention, Post-Op Tips: Knee, After Knee Replacement: Back at Home Admission Data Admit Date/Time: 01/11/20 09:03 Attending Provider: Rakan Barraza Admit Provider: Rakan Barraza Primary Care Provider: Ian Valera Other Providers: [facility],Home Healthcare Other Interventions: Discharge Summary Assessment (RN) Last Done: 01/12/20 12:46
[2020-01-18] MEDS ORDERED: INFLUENZA ADMINISTRATION CHARGE ONE (10:25)
[2020-01-18] MEDS ORDERED: INFLUENZA VIRUS QUAD VACCINE 0.5 ML SYR IM ONE (10:25)
== END 2020-01-12 13:52 | disposition home health service (06) ==
LOC: 3E 05:02 → ASU 05:02